=== PATIENT | male | born 1990 | race Caucasian/White ===

== ENCOUNTER 2023-09-11 16:49 | Emergency (ER) | payer MEDICAID ==
[~2023-09-11] VITALS: Ht 172.7 cm; Wt 99.8 kg
[2023-09-11 16:58] VITALS: BP 131/79; TEMP 98.1
[2023-09-11 17:50] VITALS: O2SAT 99
== END 2023-09-11 17:43 | disposition home or self-care (01) ==
LOC: ER 16:49
DX: S61.211D Laceration without foreign body of left index finger without damage to nail, subsequent encounter (principal); X58.XXXD Exposure to other specified factors, subsequent encounter